=== PATIENT | female | born 1960 | race Caucasian/White ===

== ENCOUNTER 2018-11-01 19:08 | Inpatient (IN) | payer BC ==
[~2018-11-01] VITALS: Ht 165.1 cm; Wt 60.3 kg
[2018-11-01 20:38] LABS: CALCIUM 8.7 mg/dL (8.5-10.1); CARBON DIOXIDE 26.2 mmol/L (21-32); CHLORIDE SERUM 99 mmol/L (98-107); CREATININE SERUM 0.8 mg/dL (0.6-1.0); GFR1 > 60 mL/min; GLUCOSE SERUM 118 mg/dL (74-106); POTASSIUM SERUM 4.5 mmol/L (3.5-5.1); SODIUM SERUM 133 mmol/L (136-145)
[2018-11-01 20:42] LABS: ALKALINE PHOSPHATASE 113 U/L (46-116); ALT/SGPT 9 U/L (14-59); AST/SGOT 17 U/L (15-37); BILIRUBIN TOTAL 0.27 mg/dL (0.20-1.00); LIPASE 140 IU/L (73-393); TOTAL PROTEIN, SERUM 7.2 g/dL (6.4-8.2)
[2018-11-01 20:51] LABS: PLATELET COUNT 235 x10^3mcL (130-400)
[2018-11-01 20:52] LABS: ALBUMIN 3.2 g/dL (3.4-5.0)
[2018-11-01 21:07] LABS: MONOCYTE 4 % (0-7); SEGMENTED NEUTROPHILS 81 % (37-75)
[2018-11-01 21:11] LABS: rbc morphology (normal/abnorm) ABNORMAL (NORMAL)
[2018-11-01 21:12] LABS: PLATELET MORPHOLOGY PLATELETS NORMAL
[2018-11-02] VITALS (8 sets, daily range): BP systolic 104–143; BP diastolic 54–84
[2018-11-02 01:41] LABS: MAGNESIUM 2.1 mg/dL (1.8-2.4); PHOSPHOROUS 3.9 mg/dL (2.5-4.9)
[2018-11-02 01:42] LABS: CHOLESTEROL/HDL RATIO 3.2
[2018-11-02] MEDS ORDERED: LEXAPRO20 MG PO (02:14)
[2018-11-02] MEDS ORDERED: SOMA350 MG PO (02:14)
[2018-11-02] MEDS ORDERED: MSIR15 PO (02:15)
[2018-11-02] MEDS ORDERED: MORPHINE SULFAT30 M2 PO (02:16)
[2018-11-02 08:18] LABS: BASOPHIL % 0.4 % (0-2); PLATELET COUNT 169 x10^3mcL (130-400)
[2018-11-02 08:28] LABS: CALCIUM 8.1 mg/dL (8.5-10.1); CARBON DIOXIDE 24.8 mmol/L (21-32); CHLORIDE SERUM 101 mmol/L (98-107); CREATININE SERUM 0.6 mg/dL (0.6-1.0); GFR1 > 60 mL/min; GLUCOSE SERUM 107 mg/dL (74-106); POTASSIUM SERUM 4.1 mmol/L (3.5-5.1); SODIUM SERUM 133 mmol/L (136-145)
[2018-11-02 08:32] LABS: RED CELL DISTRIBUTION WIDTH 21.1 % (11.5-14.5)
[2018-11-02 08:54] LABS: IRON 36 ug/dL (50-170); TOTAL IRON BINDING CAPACITY 375 ug/dL (250-450)
[2018-11-02 14:42] LABS: rbc morphology (normal/abnorm) ABNORMAL (NORMAL)
[2018-11-02 19:03] LABS: BASOPHIL % 0.5 % (0-2); PLATELET COUNT 160 x10^3mcL (130-400)
[2018-11-02 19:24] LABS: RED CELL DISTRIBUTION WIDTH 21.5 % (11.5-14.5)
[2018-11-02 19:29] LABS: RED BLOOD CELLS 2.99 M/mm3 (4.10-5.10)
[2018-11-02 19:31] LABS: rbc morphology (normal/abnorm) ABNORMAL (NORMAL)
[2018-11-03 06:01] VITALS: BP 143/88
[2018-11-03 06:23] LABS: CARBON DIOXIDE 26.7 mmol/L (21-32); CHLORIDE SERUM 105 mmol/L (98-107); CREATININE SERUM 0.5 mg/dL (0.6-1.0); GFR1 > 60 mL/min; GLUCOSE SERUM 103 mg/dL (74-106); POTASSIUM SERUM 4.1 mmol/L (3.5-5.1); SODIUM SERUM 140 mmol/L (136-145)
[2018-11-03 07:11] LABS: BASOPHIL % 0.2 % (0-2); PLATELET COUNT 146 x10^3mcL (130-400)
[2018-11-03 09:32] LABS: rbc morphology (normal/abnorm) ABNORMAL (NORMAL)
[2018-11-03 13:22] VITALS: BP 129/81
[2018-11-03 16:06] VITALS: BP 150/97
[2018-11-03 16:09] VITALS: BP 143/85
[2018-11-03 20:30] VITALS: BP 139/78
[2018-11-03 22:05] LABS: BASOPHIL % 0.2 % (0-2); PLATELET COUNT 145 x10^3mcL (130-400)
[2018-11-03 22:12] LABS: RED CELL DISTRIBUTION WIDTH 21.2 % (11.5-14.5)
[2018-11-03 22:18] LABS: rbc morphology (normal/abnorm) ABNORMAL (NORMAL)
[2018-11-03 22:19] LABS: acanthocyte (spur cell) 1+; tear drop cell (dacryocyte) 1+
[2018-11-04 05:24] VITALS: BP 113/68
[2018-11-04 05:39] LABS: BASOPHIL % 0.5 % (0-2); PLATELET COUNT 138 x10^3mcL (130-400)
[2018-11-04 05:40] LABS: RED CELL DISTRIBUTION WIDTH 21.7 % (11.5-14.5)
[2018-11-04 05:45] LABS: CALCIUM 8.2 mg/dL (8.5-10.1); CARBON DIOXIDE 25.9 mmol/L (21-32); CHLORIDE SERUM 106 mmol/L (98-107); CREATININE SERUM 0.6 mg/dL (0.6-1.0); GFR1 > 60 mL/min; GLUCOSE SERUM 102 mg/dL (74-106); SODIUM SERUM 140 mmol/L (136-145)
[2018-11-04 09:00] VITALS: BP 136/67
[2018-11-04 12:00] VITALS: BP 128/74
[2018-11-04 14:06] VITALS: BP 128/74
[2018-11-04 16:44] VITALS: Ht 165.1 cm; Wt 60.3 kg
== END 2018-11-04 11:55 | disposition home or self-care (01) | DRG 300 ==
LOC: ED 19:08 → EDBEDREQ 11-02 01:03 → DU 11-02 01:03
PROVIDERS: Internal Medicine; Internal Medicine Gastroenterology; ADMIT General Practice
PROC: 30233N1 Transfusion of Nonautologous Red Blood Cells into Peripheral Vein, Percutaneous Approach (ICD-10-PCS; 2018-11-02)
PROC: 0DB68ZX Excision of Stomach, Via Natural or Artificial Opening Endoscopic, Diagnostic (ICD-10-PCS; principal; 2018-11-02 10:30)
PROC: 0FB13ZX Excision of Right Lobe Liver, Percutaneous Approach, Diagnostic (ICD-10-PCS; 2018-11-03)
PROC: 0DBG8ZZ Excision of Left Large Intestine, Via Natural or Artificial Opening Endoscopic (ICD-10-PCS; 2018-11-03 08:30)
DX: I86.4 Gastric varices (principal); E87.1 Hypo-osmolality and hyponatremia; E44.0 Moderate protein-calorie malnutrition; D50.9 Iron deficiency anemia, unspecified; K64.4 Residual hemorrhoidal skin tags; K64.8 Other hemorrhoids; K86.9 Disease of pancreas, unspecified; R16.0 Hepatomegaly, not elsewhere classified; F17.210 Nicotine dependence, cigarettes, uncomplicated; Z98.1 Arthrodesis status; Z95.0 Presence of cardiac pacemaker; Z68.21 Body mass index [BMI] 21.0-21.9, adult; Z90.710 Acquired absence of both cervix and uterus
CPT/HCPCS: 43235; 45378; C9113; J1200; J1610; J2001; J2060; J2250; J2270; J2310; J2405; J2765; J2916; J3010; J3490; J7030; J7040; J7050; P9016; Q0163; Q9966; Q9967

== ENCOUNTER 2018-11-05 20:42 | Inpatient (IN) | payer BC ==
[~2018-11-05] VITALS: Ht 162.6 cm; Wt 61.2 kg
[~2018-11-05 20:42] MED LIST: LEXAPRO20 MG PO; MORPHINE SULFAT30 M2 PO; MSIR15 PO; SOMA350 MG PO
[2018-11-05 20:48] VITALS: Ht 162.6 cm; Wt 61.2 kg
[2018-11-05 22:24] LABS: PLATELET COUNT 155 x10^3mcL (130-400)
[2018-11-05 22:38] LABS: CALCIUM 8.3 mg/dL (8.5-10.1); CARBON DIOXIDE 26.9 mmol/L (21-32); CHLORIDE SERUM 105 mmol/L (98-107); CREATININE SERUM 0.6 mg/dL (0.6-1.0); GFR1 > 60 mL/min; GLUCOSE SERUM 121 mg/dL (74-106); POTASSIUM SERUM 3.6 mmol/L (3.5-5.1); SODIUM SERUM 139 mmol/L (136-145)
[2018-11-05 22:43] LABS: ALKALINE PHOSPHATASE 95 U/L (46-116); ALT/SGPT 17 U/L (14-59); AST/SGOT 24 U/L (15-37); BILIRUBIN TOTAL 0.2 mg/dL (0.20-1.00); LIPASE 68 IU/L (73-393)
[2018-11-05 22:45] LABS: ALBUMIN 2.6 g/dL (3.4-5.0); TOTAL PROTEIN, SERUM 5.9 g/dL (6.4-8.2)
[2018-11-05 22:47] LABS: BASOPHIL % 0 % (0-2)
[2018-11-05 22:48] LABS: RED CELL DISTRIBUTION WIDTH 23.2 % (11.5-14.5)
[2018-11-05 22:59] LABS: rbc morphology (normal/abnorm) ABNORMAL (NORMAL)
[2018-11-06] VITALS (11 sets, daily range): BP systolic 108–123; BP diastolic 48–73
[2018-11-06 01:17] LABS: MAGNESIUM 1.7 mg/dL (1.8-2.4); PHOSPHOROUS 3.7 mg/dL (2.5-4.9)
[2018-11-06 03:55] LABS: rbc morphology (normal/abnorm) ABNORMAL (NORMAL)
[2018-11-06] MEDS ORDERED: PROT40I IV (14:53)
[2018-11-06] MEDS ORDERED: SANDOSTATIN50 MCG/ML IJ (15:00)
[2018-11-06 17:19] LABS: CALCIUM 7.9 mg/dL (8.5-10.1); CARBON DIOXIDE 24.4 mmol/L (21-32); CHLORIDE SERUM 103 mmol/L (98-107); CREATININE SERUM 0.6 mg/dL (0.6-1.0); GFR1 > 60 mL/min; GLUCOSE SERUM 130 mg/dL (74-106); MAGNESIUM 1.7 mg/dL (1.8-2.4); PHOSPHOROUS 4.6 mg/dL (2.5-4.9); POTASSIUM SERUM 4.8 mmol/L (3.5-5.1); SODIUM SERUM 133 mmol/L (136-145)
[2018-11-07 05:45] VITALS: BP 124/66
[2018-11-07 06:40] LABS: CALCIUM 8.3 mg/dL (8.5-10.1); CHLORIDE SERUM 103 mmol/L (98-107); CREATININE SERUM 0.6 mg/dL (0.6-1.0); GFR1 > 60 mL/min; GLUCOSE SERUM 125 mg/dL (74-106); MAGNESIUM 1.7 mg/dL (1.8-2.4); PHOSPHOROUS 4.4 mg/dL (2.5-4.9); POTASSIUM SERUM 4.2 mmol/L (3.5-5.1); SODIUM SERUM 136 mmol/L (136-145)
[2018-11-07 07:11] LABS: BASOPHIL % 0.2 % (0-2); PLATELET COUNT 113 x10^3mcL (130-400)
[2018-11-07 10:19] VITALS: BP 128/60
[2018-11-07 15:05] VITALS: BP 128/60
[2018-11-07 19:05] VITALS: BP 116/48
[2018-11-07 21:08] VITALS: BP 111/50
== END 2018-11-07 23:06 | disposition short-term general hospital (02) | DRG 299 ==
LOC: ED 20:42 → DU 23:05
PROVIDERS: Emergency Medicine; ADMIT Internal Medicine
PROC: 30233N1 Transfusion of Nonautologous Red Blood Cells into Peripheral Vein, Percutaneous Approach (ICD-10-PCS; principal; 2018-11-05)
DX: I86.4 Gastric varices (principal); N17.0 Acute kidney failure with tubular necrosis; E43 Unspecified severe protein-calorie malnutrition; C25.9 Malignant neoplasm of pancreas, unspecified; D62 Acute posthemorrhagic anemia; I10 Essential (primary) hypertension; Z90.710 Acquired absence of both cervix and uterus; Z95.0 Presence of cardiac pacemaker; R16.0 Hepatomegaly, not elsewhere classified; F32.9 Major depressive disorder, single episode, unspecified; Z85.05 Personal history of malignant neoplasm of liver; Z85.89 Personal history of malignant neoplasm of other organs and systems; F17.210 Nicotine dependence, cigarettes, uncomplicated; E83.42 Hypomagnesemia; E83.51 Hypocalcemia; Z68.21 Body mass index [BMI] 21.0-21.9, adult
CPT/HCPCS: 97530-GP; C9113; J1170; J1940; J2270; J2354; J2405; J2916; J7030; J7040; J7050; P9016; Q0092; Q0163